=== PATIENT | male | born 2000 | race Two or more races ===

== ENCOUNTER → 2020-01-11 | Emergency (ER) | payer SELFPAY ==
[~2020-01-11] VITALS: Ht 175.3 cm; Wt 83.9 kg
[~2020-01-11] MED LIST: NEOMYCIN-BACITRACIN-POLYM UNITDOSE PKG TOP OINT TOP ONE; SODIUM CHLORIDE 0.9% 1,000 ML IV ONE; TETANUS-DIPTH-ACEL PERTUSSIS 0.5ML SYR Tdap IM ONE
[2020-01-11 19:25] VITALS: BP 134/74
== END | disposition home or self-care (01) ==
LOC: ER 15:46
DX: S61.216A Laceration without foreign body of right little finger without damage to nail, initial encounter (principal); S80.02XA Contusion of left knee, initial encounter; M25.512 Pain in left shoulder; V29.9XXA Motorcycle rider (driver) (passenger) injured in unspecified traffic accident, initial encounter; Y93.55 Activity, bike riding; Y92.410 Unspecified street and highway as the place of occurrence of the external cause; Y99.8 Other external cause status
CPT/HCPCS: 12002; 70450; 71045; 72125; 73030; 73562; 73700; 90471; 90715